=== PATIENT | male | born 1980 | race Caucasian/White ===

== ENCOUNTER 2020-07-19 07:00 | Outpatient (REF) | payer OTHER, SELFPAY | END 2020-07-19 07:01 | disposition home or self-care (01) | LOC: HO.LAB 07:00 | PROVIDERS: Visit Provider Internal Medicine | DX: Z20.828 Contact with and (suspected) exposure to other viral communicable diseases (principal) | CPT/HCPCS: 87635 ==

== ENCOUNTER 2020-10-04 06:47 | Outpatient (REF) | payer BC, SELFPAY | END 2020-10-04 06:48 | disposition home or self-care (01) | LOC: HO.LAB 06:47 | PROVIDERS: Visit Provider Internal Medicine | DX: Z20.822 Contact with and (suspected) exposure to COVID-19 (principal) | CPT/HCPCS: 36415; C9803; U0003 ==